=== PATIENT | female | born 1950 | race Caucasian/White ===

== ENCOUNTER → 2016-08-01 | Outpatient (CLI) | payer MEDICARE, OTHER ==
[~2016-08-01] MED LIST: CALC-17 PO; DILT300C PO; HCT25T PO; HYDR1TAB PO; NF-ALI300T PO; vitamine D3 PO
--- NOTE | 2016-08-01 12:12 | Diagnostic Imaging Report ---
EXAMINATION: DEXA scan. INDICATION: Osteopenia. TECHNIQUE: Bone mineral density estimated based on dual energy radiography over the lumbar spine and femoral necks, was performed. FINDINGS: The lumbar spine T-score is 0.2. The T score over the left femoral neck is 0.8 and on the right is 1.2. IMPRESSION: Normal bone mineral density. Dictated by: Dictated on workstation # [id number]
--- NOTE | 2016-08-06 11:43 | Diagnostic Imaging Report ---
Bilateral screening mammogram The current study was also evaluated with a Computer Aided Detection (CAD) system. INDICATION: Screening. No current complaints stated on the questionnaire. COMPARISON: 07/25/15. FINDINGS: The breasts are composed of heterogeneously dense parenchyma which may decrease mammographic sensitivity. There are benign-appearing calcifications seen. No mass, architectural distortion or suspicious cluster of calcification have developed. Allowing for technique and positional differences, no suspicious change is seen. IMPRESSION: Dense breasts with no definite change. ACR BI-RADS Category 2: Benign findings. Result letter will be mailed to the patient. Note: At least 10% of breast cancer is not imaged by mammography. Dictated by: Dictated on workstation # [id number]
== END ==
LOC: RAD 09:11
PROVIDERS: ATTEND Nurse Practitioner
DX: Z12.31 Encounter for screening mammogram for malignant neoplasm of breast (principal); Z13.820 Encounter for screening for osteoporosis; Z78.0 Asymptomatic menopausal state
CPT/HCPCS: 77067; 77080

== ENCOUNTER → 2017-08-04 | Outpatient (CLI) | payer MEDICARE, OTHER ==
--- NOTE | 2017-08-05 08:17 | Diagnostic Imaging Report ---
Digital mammogram. Bilateral screening with 3-D tomosynthesis. Study was compared to prior exams of 08/01/2016, 07/25/2015 and 07/15/2014. At this time there are no current complaints. The current study was also evaluated with a Computer Aided Detection (CAD) system. FINDINGS: There are scattered fibroglandular densities in both breasts which could obscure a lesion. Overall, there does not appear to have been any significant change when compared to the prior exam. No primary or secondary sign of malignancy is noted. IMPRESSION: There is no radiographic evidence for malignancy. ACR BI-RADS Category 1: Negative. Result letter will be mailed to the patient. Note: At least 10% of breast cancer is not imaged by mammography. Dictated by: Dictated on workstation # [id number]
== END ==
LOC: RAD 10:40
PROVIDERS: ATTEND Obstetrics & Gynecology
DX: Z12.31 Encounter for screening mammogram for malignant neoplasm of breast (principal)
CPT/HCPCS: 77067

== ENCOUNTER → 2018-08-17 | Outpatient (CLI) | payer MEDICARE, OTHER ==
--- NOTE | 2018-08-17 10:32 | Diagnostic Imaging Report ---
Indication: Routine screening. Comparison is made with prior mammogram from 08/04/2017 and 08/01/2016. 2-D and 3-D bilateral screening mammography was performed with CAD. Both breasts are heterogeneously dense, limiting the sensitivity of mammography. Scattered benign-appearing calcifications are identified bilaterally. The parenchymal pattern is stable. No mass or malignant-appearing microcalcifications are seen. The axillae are unremarkable. Impression: BI-RADS category 2 No mammographic features suspicious for malignancy are identified. ACR BI-RADS Category 2: Benign findings. Result letter will be mailed to the patient. Note: At least 10% of breast cancer is not imaged by mammography. Dictated by: Dictated on workstation # [id number]
== END ==
LOC: RAD 08:44
PROVIDERS: ATTEND Obstetrics & Gynecology
DX: Z12.31 Encounter for screening mammogram for malignant neoplasm of breast (principal)
CPT/HCPCS: 77067

== ENCOUNTER → 2019-08-20 | Outpatient (CLI) | payer MEDICARE, OTHER ==
--- NOTE | 2019-08-24 14:47 | Diagnostic Imaging Report ---
INDICATION: Routine screening. COMPARISON: 08/17/2018 and 08/04/2017. TECHNIQUE: 2D and 3D bilateral screening mammography was performed with CAD. FINDINGS: Both breasts are heterogeneously dense, limiting the sensitivity of mammography. There are benign calcifications scattered throughout both breasts. The overall parenchymal pattern is stable. No spiculated mass or malignant appearing microcalcifications are seen. The axillae are unremarkable. IMPRESSION: No mammographic features suspicious for malignancy are identified. ACR BI-RADS Category 2: Benign findings. Result letter will be mailed to the patient. Note: At least 10% of breast cancer is not imaged by mammography. Dictated by: Dictated on workstation # [id number]
== END ==
LOC: RAD 10:05
PROVIDERS: ATTEND Nurse Practitioner Women's Health
DX: Z12.31 Encounter for screening mammogram for malignant neoplasm of breast (principal)
CPT/HCPCS: 77063; 77067

== ENCOUNTER → 2020-08-25 | Outpatient (CLI) | payer MEDICARE, OTHER ==
--- NOTE | 2020-08-29 15:06 | Diagnostic Imaging Report ---
INDICATION: Routine screening. COMPARISON: 08/20/2019 and 08/17/2018. TECHNIQUE: 2D and 3D bilateral screening mammography was performed with CAD. FINDINGS: Both breasts are heterogeneously dense, limiting the sensitivity of mammography. There are benign calcifications scattered throughout both breasts. No dominant mass or malignant appearing microcalcifications are seen. The axillae are unremarkable. IMPRESSION: No mammographic features suspicious for malignancy are identified. ACR BI-RADS Category 2: Benign findings. Result letter will be mailed to the patient. Note: At least 10% of breast cancer is not imaged by mammography. Dictated by: Dictated on workstation # [id number]
== END ==
LOC: RAD 09:46
PROVIDERS: ATTEND Obstetrics & Gynecology
DX: Z12.31 Encounter for screening mammogram for malignant neoplasm of breast (principal)
CPT/HCPCS: 77063; 77067

== ENCOUNTER → 2021-04-03 | Outpatient (CLI) | payer MEDICARE, OTHER ==
--- NOTE | 2021-04-03 14:57 | Diagnostic Imaging Report ---
INDICATION: Postmenopausal. COMPARISON: 08/01/2016. FINDINGS: The bone mineral density of the spine, hips, and femoral necks was measured. The total T score for the spine is 0.4. On the prior exam, the T score was 0.2. The total T score for the left hip is 0.7 and for the right hip 1.2. On the prior exam, the respective T scores were 0.8 and 1.2. The T score for the left femoral neck is -1.4 and for the right -0.4. On the prior exam, the respective T-scores were -1.0 and -0.2. AP Spine L1-L4: [BMD (g/cm2): 1.244] [T-Score: 0.4] [Z-Score: 1.7] [BMD Previous: 1.221] [BMD % Change: 1.9] LT Hip Neck: [BMD (g/cm2): 0.850] [T-Score: -1.4] [Z-Score: 0.1] LT Hip Total: [BMD (g/cm2):1.095] [T-Score:0.7] [Z-Score: 1.9] [BMD Previous: 1.112] [BMD % Change: -1.5] RT Hip Neck: [BMD (g/cm2):0.989] [T-Score:-0.4] [Z-Score:1.1] RT Hip Total: [BMD (g/cm2):1.155] [T-score:1.2] [Z-Score:2.4] [BMD Previous:1.164] [BMD % Change:-0.8] *Indicates significant change from prior examination based on 95% confidence level. World Health Organization criteria for BMD interpretation classify patients as Normal (T-score at or above -1.0), Osteopenic (T-score between -1.0 and -2.5) or Osteoporotic (T-score at or below -2.5). LIMITATIONS AND MODIFICATION: None. FRACTURE RISK (FRAX SCORE): The ten year probability of (%): Major Osteoporotic Fracture: [NA] Hip Fracture: [NA] IMPRESSION: 1. The bone mineral density of the spine, hips, and right femoral neck remain within normal limits. 2. However, there has been a slight decrease in the bone mineral density of the left femoral neck. This T score now indicates osteopenia. 3. See below National Osteoporosis Foundation guidelines on when to potentially initiate pharmacologic therapy. Based on the National Osteoporosis Foundation Guidelines, pharmacologic treatment should be initiated in any of the following, unless clinical conditions suggest otherwise: * Any patient with prior fragility fracture of the hip or vertebrae. A spine fracture indicates 5X risk for subsequent spine fracture and 2X risk for subsequent hip fracture. * Osteoporosis (T-score <-2.5). * Postmenopausal women and men age 50 and older with low bone mass/osteopenia (T-score between -1.0 and -2.5) by DXA and 10-year major osteoporotic fracture greater than 20% or a 10-year probability of hip fracture greater than 3%. These fracture risks are supplied above in the FRAX score, if applicable. * Clinician judgement and/or patient preferences may indicate treatment for people with 10-year fracture probabilities above or below these levels. Dictated by: Dictated on workstation # [id number]
== END ==
LOC: RAD 13:30
PROVIDERS: ATTEND Family Medicine
DX: Z78.0 Asymptomatic menopausal state (principal)
CPT/HCPCS: 77080

== ENCOUNTER → 2021-08-29 | Outpatient (CLI) | payer MEDICARE, OTHER ==
--- NOTE | 2021-08-29 18:14 | Diagnostic Imaging Report ---
INDICATION: Routine screening. Comparison is made with prior mammogram from 08/25/2020 and 08/20/2019. 2-D and 3-D bilateral screening mammography was performed with CAD. Both breasts are heterogeneously dense, limiting the sensitivity of mammography. Scattered benign calcifications are noted bilaterally. No mass or malignant-appearing microcalcifications are seen. Axillae are unremarkable. IMPRESSION: No mammographic features suspicious for malignancy are identified. ACR BI-RADS Category 2: Benign findings. Result letter will be mailed to the patient. Note: At least 10% of breast cancer is not imaged by mammography. BI-RADS Category 2 Dictated by: Dictated on workstation # [id number]
== END ==
LOC: RAD 10:31
PROVIDERS: ATTEND Nurse Practitioner Family
DX: Z12.31 Encounter for screening mammogram for malignant neoplasm of breast (principal)
CPT/HCPCS: 77063; 77067

== ENCOUNTER 2021-10-31 06:20 | Outpatient (CLI) | payer MEDICARE, OTHER ==
[~2021-10-31] VITALS: Ht 154.9 cm; Wt 78.5 kg
[2021-10-31] MEDS ORDERED: ZINC50TA51 PO (11:51)
[2021-10-31] MEDS ORDERED: TUME1CAP PO (11:51)
[2021-10-31] MEDS ORDERED: OMEG100032 PO (11:51)
[2021-10-31] MEDS ORDERED: IRBE300T17 PO (11:51)
[2021-10-31] MEDS ORDERED: CALC600T91 PO (11:51)
[2021-10-31] MEDS ORDERED: SPIR25TA5 PO (11:51)
[2021-10-31] MEDS ORDERED: CHOL500050 PO (11:51)
[2021-10-31] MEDS ORDERED: CYAN50009 PO (11:51)
[2021-10-31] MEDS ORDERED: GING550C4 PO (11:51)
[2021-10-31] MEDS ORDERED: DILT300C49 PO (11:51)
[2021-10-31] MEDS ORDERED: MULT-1018 PO (11:51)
[2021-10-31] MEDS ORDERED: FOLI0.8T4 PO (11:51)
== END 2021-10-31 11:54 | disposition home or self-care (01) ==
LOC: PREOP 06:20
PROVIDERS: ATTEND Internal Medicine
DX: Z01.818 Encounter for other preprocedural examination (principal)

== ENCOUNTER 2021-11-09 07:00 | Day surgery (SDC) | payer MEDICARE, OTHER ==
--- NOTE | 2021-10-31 10:23 | HISTORY AND PHYSICAL ---
DATE OF SERVICE: COLONOSCOPY HISTORY AND PHYSICAL HISTORY OF PRESENT ILLNESS: The patient is a 70-year-old white female referred by Dotty Mcclelland for screening colonoscopy. She is deemed to be of average risk as she is not aware of any family history for colon cancer. She underwent one other colonoscopy per Dr. Regalado done 10 years ago, at which time electronic medical record information reveals she had diverticular disease without evidence for neoplasia at the time of colonoscopy. She reports that she has had issues with colonoscopy that has been pretty well controlled drinking flax milk. She denies bright red blood per rectum, abdominal pain, bloating or change in bowel habit. PAST MEDICAL HISTORY: Significant for hypertension as well as some alopecia. PAST SURGICAL HISTORY: She has had a bunionectomy in 2004. FAMILY HISTORY: Pertinent for malignant hyperthermia in several first-degree relatives. Father had history of prostate cancer and her mother was diagnosed with some form of female cancer. She is not sure whether it was cervical, uterine, or ovarian with no known family history of colon cancer. SOCIAL HISTORY: She is with no past smoking history and occasional social alcohol intake. REVIEW OF SYSTEMS: CONSTITUTIONAL: Denies night sweats, chills, fever, change in weight. GASTROINTESTINAL: As noted in the HPI. PULMONARY: Denies cough, wheezing or shortness of breath. CARDIOVASCULAR: Denies chest pain, orthopnea, PND, pedal edema or syncope. PHYSICAL EXAMINATION: GENERAL: Reveals a white female, appears to be in no acute distress. VITAL SIGNS: Weight 173 pounds, blood pressure 140/88. HEENT: Unremarkable. Mallampati 1 oropharyngeal configuration with no erythema or exudate. CHEST: Clear to auscultation. CARDIOVASCULAR: Reveals a regular rate and rhythm without murmur, S3 or S4. ABDOMEN: Soft, supple without mass, organomegaly or tenderness. EXTREMITIES: Reveal no cyanosis, clubbing or edema. ASSESSMENT AND PLAN: The patient is being set up for screening colonoscopy, deemed to be of average risk with a past history of diverticular disease, but reported known history of diverticulitis. Prep instructions were given, and questions were answered. Electronic medical record was reviewed. I thank you for the referral of this pleasant lady. Job ID: [id number] DocumentID: [id number] Dictated Date: 10/29/2021 15:54:51 Oceanologist Date: 10/29/2021 16:26:53 Dictated By: CARLITO DENT MD
[~2021-11-09] VITALS: Ht 154.9 cm; Wt 78.5 kg
[~2021-11-09 07:00] MED LIST changes: +CALC600T91 PO; +CHOL500050 PO; +CYAN50009 PO; +DILT300C49 PO; +FOLI0.8T4 PO; +GING550C4 PO; +IRBE300T17 PO; +MULT-1018 PO; +OMEG100032 PO; +SPIR25TA5 PO; +TUME1CAP PO; +ZINC50TA51 PO
[2021-11-09] MEDS ORDERED: LACTATED RINGERS 1,000 ML IV STA (07:12)
[2021-11-09] MEDS ORDERED: MIDAZOLAM 2 MG/2 ML (VERSED) VIAL ONE (07:18)
[2021-11-09] MEDS ORDERED: PROPOFOL INJECTION 50 ML IV ONE (07:18)
[2021-11-09 07:35] VITALS: BP 127/81
--- NOTE | 2021-11-09 07:55 | Pre-Op Note & Conscious Sedat ---
Pre-Operative Progress Note Date H&P Reviewed: Nov 09, 2021 Time H&P Reviewed: 07:45 History & Physical: H&P Reviewed, Patient Examed, No changes noted Pre-Op Diagnosis: screening Conscious Sedation Pre-Proced ASA Score 2 For ASA 3 and 4: Consider anesthesia and medical clearance. Also, for patients with a history of failed moderate sedation consider anesthesia. Airway Lungs Heart ASA score ASA 1: a normal healthy patient ASA 2: a patient with a mild systemic disease (mid diabetes, controlled hypertension, obesity ASA 3: a patient with a severe systemic disease that limits activity (angina, COPD, prior Myocardial infarction) ASA 4: a patient with an incapacitating disease that is a constant threat to life (CHF, renal failure) ASA 5: a moribund patient not expected to survive 24 hrs. (ruptured aneurysm) ASA 6: a declared brain- patient whose organs are being harvested. For emergent operations, add the letter E after the classification Mallampati Classification Grade 2 Sedation Plan Analgesia, Amnesia, Plan communicated to team members, Discussed options with patient/fam, Discussed risks with patient/fam The patient is an appropriate candidate to undergo the planned procedure, sedation, and anesthesia. The patient immediately re-assessed prior to indication. CARLITO DENT MD Nov 09, 2021 07:55
[2021-11-09 08:30] VITALS: BP 88/51
--- NOTE | 2021-11-09 08:31 | Progress Note-Post Operative ---
Post-Procedure Note Physician (s)/Critical Care Clinical Nurse Specialist (s) Physician CARLITO DENT MD Pre-Procedure Diagnosis Pre-Procedure Diagnosis: screening Post-Procedure Diagnosis Post-operative diagnosis: normal colonoscopy CARLITO DENT MD Nov 09, 2021 08:31
[2021-11-09 08:34] VITALS: BP 90/50
[2021-11-09 09:10] VITALS: BP 90/50
--- NOTE | 2021-11-09 13:03 | Anesthesia-General Post-Op ---
MAC Patient Condition Mental Status/LOC: Same as Preop Cardiovascular: Satisfactory Nausea/Vomiting: Absent Respiratory: Satisfactory Pain: Controlled Complications: Absent Post Op Complications Complications None Follow Up Care/Instructions Patient Instructions None needed. Anesthesiology Discharge Order Discharge Order Patient is doing well, no complaints, stable vital signs, no apparent adverse anesthesia problems. No complications reported per nursing. NASRA TRAMMELL CRNA Nov 09, 2021 13:03
--- NOTE | 2021-11-09 15:38 | OPERATIVE REPORT ---
DATE OF SERVICE: COLONOSCOPY SUMMARY INDICATION FOR THE PROCEDURE: Screening colonoscopy. DESCRIPTION OF PROCEDURE: The patient was placed in the left lateral decubitus position. Prior to undergoing colonoscopy, digital rectal evaluation was performed. Anal sphincter tone was normal. Perianal reflexes intact. No abnormalities were noted on digital inspection of anal canal or distal rectal vault. Colonoscope was inserted in the rectum and advanced to the cecum. Cecum was identified by identification of ileocecal valve and cecal strap. Photographic documentation was obtained. Careful inspection was made as colonoscope withdrawn. Quality of prep was fair. There was some semi-solid stool in various areas throughout the colon, but could potentially obscure small sessile polyps. FINDINGS: There was no evidence for internal or external hemorrhoids. The rectum, sigmoid colon, descending colon, splenic flexure, transverse colon, hepatic flexure, ascending colon, and cecum were unremarkable. ASSESSMENT: Normal colonoscopy to the cecum under not ideal prep conditions as noted above. We would advocate consideration for repeat screening colonoscopy in 10 years. Job ID: [id number] DocumentID: [id number] Dictated Date: 11/09/2021 08:28:19 Instructional Specialist Date: 11/09/2021 15:37:39 Dictated By: CARLITO DENT MD [facility]
== END 2021-11-09 09:10 | disposition home or self-care (01) ==
LOC: ENDO 07:00
PROVIDERS: ATTEND Internal Medicine
DX: Z12.11 Encounter for screening for malignant neoplasm of colon (principal); Z87.19 Personal history of other diseases of the digestive system

== ENCOUNTER → 2022-09-12 | Outpatient (CLI) | payer MEDICARE, OTHER ==
[~2022-09-12] MED LIST changes: +DILT300C38 PO; -DILT300C49 PO
--- NOTE | 2022-09-12 11:51 | Diagnostic Imaging Report ---
INDICATION: Routine screening. Comparison is made with prior mammogram from 08/29/2021 and 08/25/2020. 2-D and 3-D bilateral screening mammography was performed with CAD. Both breasts are heterogeneously dense, limiting the sensitivity of mammography. The parenchymal pattern is stable. No mass or malignant-appearing microcalcifications are identified. There are scattered benign calcifications noted. Axillae are unremarkable. IMPRESSION: No mammographic features suspicious for malignancy are identified. ACR BI-RADS Category 2: Benign findings. Result letter will be mailed to the patient. Note: At least 10% of breast cancer is not imaged by mammography. BI-RADS Category 2 Dictated by: Dictated on workstation # [id number]
== END ==
LOC: RAD 10:13
PROVIDERS: ATTEND Family Medicine
DX: Z12.31 Encounter for screening mammogram for malignant neoplasm of breast (principal)
CPT/HCPCS: 77063; 77067